=== PATIENT | male | born 2005 ===

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

== ENCOUNTER 2024-07-20 20:10 | Emergency (ER) | payer BC ==
[~2024-07-20] VITALS: Ht 175.3 cm; Wt 88.5 kg
[2024-07-20] MEDS ORDERED: Ipratropium/Albuterol SulF 2.5-0.5MG/3 ML Amp INH ONE (21:05)
[2024-07-20 21:06] VITALS: BP 138/99
[2024-07-20 21:30] LABS: CORONAVIRUS COVID-19 AG Negative (NEGATIVE); INFLUENZA A AG Negative (NEGATIVE); INFLUENZA B AG Negative (NEGATIVE)
== END 2024-07-20 22:51 | disposition home or self-care (01) ==
LOC: ER 20:10
PROVIDERS: Emergency Medicine
DX: B34.9 Viral infection, unspecified (principal)
CPT/HCPCS: 71046; 87428-QW; 93005; 93010; 94640; 94664; 99285-25